=== PATIENT | male | born 1955 | race Caucasian/White ===

== ENCOUNTER 2021-05-20 12:18 | Emergency (ER) | payer OTHER ==
[2021-05-20 13:35] LABS: HEMOGLOBIN 11.8 gm/dl (14.0-17.5); RED BLOOD COUNT 4.11 M/UL (4.20-5.50); WHITE BLOOD COUNT 17.3 K/UL (4.5-11.0)
[2021-05-20 13:57] LABS: BUN/CREATININE RATIO 18 (0-10)
[2021-05-20] MEDS ORDERED: [UNRECOGNIZED DRUG - REMARK] (15:42)
== END 2021-05-20 15:58 | disposition home or self-care (01) ==
LOC: ER1 12:18
PROVIDERS: Family Medicine
DX: N39.0 Urinary tract infection, site not specified (principal); D72.829 Elevated white blood cell count, unspecified; K76.0 Fatty (change of) liver, not elsewhere classified; J44.9 Chronic obstructive pulmonary disease, unspecified; I10 Essential (primary) hypertension; F17.210 Nicotine dependence, cigarettes, uncomplicated
CPT/HCPCS: 71045; 80053; 81001; 82550; 82553; 82977; 83605; 84484; 85025; 87040; 87086; 99284

== ENCOUNTER 2021-05-31 12:05 | Emergency (ER) | payer OTHER ==
[~2021-05-31 12:05] MED LIST: [UNRECOGNIZED DRUG - REMARK]
[2021-05-31 13:14] LABS: HEMOGLOBIN 11.4 gm/dl (14.0-17.5); RED BLOOD COUNT 4.04 M/UL (4.20-5.50); WHITE BLOOD COUNT 15.2 K/UL (4.5-11.0)
[2021-05-31] MEDS ORDERED: HYDROCODON-ACE1 EAC4 PO (17:56)
[2021-05-31] MEDS ORDERED: CEFUROXIME500 MG PO (18:04)
[2021-05-31] MEDS ORDERED: ONDANSETRON ODT4 MG SL (18:04)
== END 2021-05-31 18:30 | disposition home or self-care (01) ==
LOC: ER1 12:05
PROVIDERS: Physician Assistant
DX: N39.0 Urinary tract infection, site not specified (principal); R79.89 Other specified abnormal findings of blood chemistry; C18.9 Malignant neoplasm of colon, unspecified; C78.7 Secondary malignant neoplasm of liver and intrahepatic bile duct; J44.9 Chronic obstructive pulmonary disease, unspecified; I10 Essential (primary) hypertension; F17.200 Nicotine dependence, unspecified, uncomplicated
CPT/HCPCS: 71045; 80053; 81001; 82550; 82553; 83605; 83690; 83874; 84484; 85025; 87086; 93005; 99284; J7030; Q9967

== ENCOUNTER 2021-06-04 11:02 | Inpatient (IN) | payer OTHER ==
[~2021-06-04] VITALS: Ht 190.5 cm; Wt 90.7 kg
[~2021-06-04 11:02] MED LIST changes: +CEFUROXIME500 MG PO; +HYDROCODON-ACE1 EAC4 PO; +ONDANSETRON ODT4 MG SL
[2021-06-04] MEDS ORDERED: METOPROLOL TART50 MG PO (12:41)
[2021-06-04] MEDS ORDERED: NORVASC5 MG PO (12:41)
[2021-06-04] MEDS ORDERED: ELAVIL 50 MG TA50 MG PO (12:42)
[2021-06-04] MEDS ORDERED: ASPIRIN EC81 MG PO (12:42)
[2021-06-04 14:04] LABS: HEMOGLOBIN 10.7 gm/dl (14.0-17.5); RED BLOOD COUNT 3.79 M/UL (4.20-5.50); WHITE BLOOD COUNT 15.7 K/UL (4.5-11.0)
[2021-06-06 04:05] LABS: HEMOGLOBIN 10.1 gm/dl (14.0-17.5); RED BLOOD COUNT 3.6 M/UL (4.20-5.50); WHITE BLOOD COUNT 14.8 K/UL (4.5-11.0)
[2021-06-06 10:55] LABS: HEMOGLOBIN 9.1 gm/dl (14.0-17.5); RED BLOOD COUNT 3.31 M/UL (4.20-5.50)
[2021-06-06 10:58] LABS: WHITE BLOOD COUNT 9.8 K/UL (4.5-11.0)
--- NOTE | 2021-06-06 13:06 | NUR ---
PATIENT ABDOMEN NOTED TO BE FIRM AND SLIGHTLY DISTENDED AFTER ARRIVING TO THE FLOOR FROM PACU. CONTACTED AND SHE STATES THAT THE FINDING IS NORMAL DUE TO LARGE AMOUNT OF STOOL IN PATIENTS COLON AND LIVER CANCER. VITALS STABLE. WILL CONTINUE TO MONITOR FOR CHANGES AND UPDATE THE PROIVIDER.
[2021-06-07 05:00] LABS: HEMOGLOBIN 10.3 gm/dl (14.0-17.5)
[2021-06-07 05:19] LABS: RED BLOOD COUNT 3.68 M/UL (4.20-5.50); WHITE BLOOD COUNT 14.7 K/UL (4.5-11.0)
[2021-06-08 06:39] LABS: HEMOGLOBIN 10.5 gm/dl (14.0-17.5); RED BLOOD COUNT 3.72 M/UL (4.20-5.50); WHITE BLOOD COUNT 16.8 K/UL (4.5-11.0)
--- NOTE | 2021-06-08 19:52 | NUR ---
NG TUBE CLAMPED FOR ONE HOUR AFTER P.O. MEDS GIVEN. NG TUBE UNCLAMPED AND BACK TO LOW INTERMITTENT SUCTION ONE HOUR AFTER P.O. MED ADMINISTERED.
[2021-06-09 03:32] LABS: HEMOGLOBIN 9.6 gm/dl (14.0-17.5); RED BLOOD COUNT 3.48 M/UL (4.20-5.50); WHITE BLOOD COUNT 17.1 K/UL (4.5-11.0)
[2021-06-10 06:18] LABS: HEMOGLOBIN 9.4 gm/dl (14.0-17.5); RED BLOOD COUNT 3.37 M/UL (4.20-5.50); WHITE BLOOD COUNT 15.4 K/UL (4.5-11.0)
[2021-06-11 05:50] LABS: HEMOGLOBIN 9.2 gm/dl (14.0-17.5); RED BLOOD COUNT 3.35 M/UL (4.20-5.50); WHITE BLOOD COUNT 15.1 K/UL (4.5-11.0)
--- NOTE | 2021-06-15 07:43 | NUR ---
RN CALLED DR. SILVA TO REQUEST HE SPEAK WITH PATIENT'S ABOUT HER INTEREST IN CHANGING PATIENT'S CODE STATUS WELL PLACING HIM ON COMFORT MEASURES RELATED TO CHANGE IN STATUS. MD STATED HE WOULD BE MAKING ROUNDS SOON AND WOULD ADDRESS THE 'S CONCERNS THEN.
--- NOTE | 2021-06-16 16:55 | NUR ---
PATIENT'S HEART RATE NOTED TO BE STEADILY DECLINING THIS SHIFT. PATIENT IS ON COMFORT MEASURES WITH FAMILY AT BEDSIDE. NO S/SX OF PAIN NOTED. RN OBSERVED ON CORPORATE RESPONSIBILITY OFFICER THAT PATIENT HAD BECOME ASYSTOLIC. RN ENTERED PATIENT'S ROOM AND AUSCULTATED HEART SOUNDS, NONE NOTED. ROQUE FELICIANO ALSO AUSCULTATED HEART SOUNDS AND NOTED NONE. RN NOTIFIED DR. VILLANUEVA OF PATIENT'S EXPIRATION.
--- NOTE | 2021-06-16 19:04 | NUR ---
CALLED [facility] TO BULLDOZER OPERATOR PT AT THIS TIME SPOKE TOO GLADIS
== END 2021-06-16 16:55 | disposition expired | DRG 329 ==
LOC: MED SURG 4 11:02
PROVIDERS: Anesthesiology; Internal Medicine Nephrology; ADMIT Surgery
PROC: 0DTF0ZZ Resection of Right Large Intestine, Open Approach (ICD-10-PCS; principal; 2021-06-06 08:30)
PROC: 0B9N30Z Drainage of Right Pleura with Drainage Device, Percutaneous Approach (ICD-10-PCS; 2021-06-13)
PROC: BB4BZZZ Ultrasonography of Pleura (ICD-10-PCS; 2021-06-13)
PROC: 02HV33Z Insertion of Infusion Device into Superior Vena Cava, Percutaneous Approach (ICD-10-PCS; 2021-06-13)
DX: C18.9 Malignant neoplasm of colon, unspecified (principal); E43 Unspecified severe protein-calorie malnutrition; I46.9 Cardiac arrest, cause unspecified; K72.00 Acute and subacute hepatic failure without coma; K76.7 Hepatorenal syndrome; N17.9 Acute kidney failure, unspecified; R18.8 Other ascites; C78.7 Secondary malignant neoplasm of liver and intrahepatic bile duct; E87.2 Acidosis; J98.11 Atelectasis; Z68.1 Body mass index [BMI] 19.9 or less, adult; E87.1 Hypo-osmolality and hyponatremia; Z66 Do not resuscitate; Z51.5 Encounter for palliative care; Z20.822 Contact with and (suspected) exposure to COVID-19; N18.2 Chronic kidney disease, stage 2 (mild); I95.9 Hypotension, unspecified; I12.9 Hypertensive chronic kidney disease with stage 1 through stage 4 chronic kidney disease, or unspecified chronic kidney disease; D63.0 Anemia in neoplastic disease; F17.210 Nicotine dependence, cigarettes, uncomplicated; R31.9 Hematuria, unspecified; J44.9 Chronic obstructive pulmonary disease, unspecified; G89.29 Other chronic pain; E87.5 Hyperkalemia; E16.2 Hypoglycemia, unspecified; F32.9 Major depressive disorder, single episode, unspecified; K59.00 Constipation, unspecified; Z82.49 Family history of ischemic heart disease and other diseases of the circulatory system; Z90.49 Acquired absence of other specified parts of digestive tract
CPT/HCPCS: 36415; 36600; 71046; 80048; 80053; 81001; 82378; 82803; 82962; 84132; 84133; 84300; 85025; 86850; 86900; 86901; 88341; 88342; 89050; 93005; 94640; 94664; 94760; 97110; 97110-GP-CQ; 97162; 97166; 97530; 97530-GP-CQ; C1729; C9113; J0690; J1100; J1170; J1644; J2001; J2250; J2270; J2405; J2704; J3010; J3480; J7030; J7040; J7070; J7120; P9045; P9047; U0002